=== PATIENT | female | born 1945 | race Caucasian/White ===

== ENCOUNTER 2018-03-14 15:27 | Inpatient (IN) | payer MEDICARE, MEDICAID ==
--- NOTE | 2018-03-14 16:53 | ED ---
Dizziness - HPI Summary HPI Summary: Pt is a 73 y/o female who presents to the ED c/o dizziness. She was at her PCP earlier today where she was found to have a hemoglobin level of 5. Pt c/o dizziness, decreased appetite, cold sweats, and fatigue. As per son, she has had intermittent bloody stool for the past 3 weeks. Pt denies any abdominal pain , vomiting, or LE edema. Son states he doesnt think his mother has had vaginal bleeding, but is unsure. Pt takes daily ASA. - History Of Current Complaint Chief Complaint: EDBleedingDisorder Stated Complaint: BLOOD WORK Time Seen by Provider: 03/14/18 16:12 Hx Obtained From: Patient, Family/School Supervisor - Son Onset/Duration: Still Present Timing: Weeks - 3 Character: Dizzy Aggravating Factor(s): Other - Low hemoglobin Alleviating Factor(s): Nothing Associated Signs And Symptoms: Positive: Diaphoresis, Decreased Oral Intake, Blood In Stool. Negative: Vomiting - Allergies/Home Medications Allergies/Adverse Reactions: Allergies Allergy/AdvReac Type Severity Reaction Status Date / Time MS Penicillins [Penicillins] Allergy Intermediate Itching Verified 01/09/16 18: 43 Home Medications: Home Medications Clopidogrel TAB* [Plavix TAB*] 75 mg PO DAILY 03/14/18 [History Confirmed ] Ezetimibe TAB* [Zetia TAB*] 10 mg PO DAILY 03/14/18 [History Confirmed 03/14/18] Insulin GLARGINE(*) [Lantus(*)] 25 units SUBCUT DAILY 03/14/18 [History Confirmed 03/14/18] Levothyroxine TAB* [Synthroid TAB*] 75 mcg PO DAILY 03/14/18 [History Confirmed 03/14/18] Lisinopril TAB* [Prinivil TAB*] 40 mg PO DAILY 03/14/18 [History Confirmed 03/14] metFORMIN* [Glucophage 500 MG TAB *] 500 mg PO TID 03/14/18 [History Confirmed 03/14/18] PMH/Surg Hx/FS Hx/Imm Hx Endocrine/Hematology History: Reports: Hx Diabetes, Hx Thyroid Disease - Hypo Cardiovascular History: Reports: Hx Hypercholesterolemia, Hx Hypertension Denies: Hx Congestive Heart Failure, Hx Pacemaker/ICD Respiratory History: Denies: Hx Chronic Obstructive Pulmonary Disease (COPD) GI History: Reports: Other GI Disorders - ABDOMINAL SWELLING, EPIGASTIC PAIN History: Denies: Hx Dialysis, Hx Renal Disease Musculoskeletal History: Reports: Other Musculoskeletal History - L side weakness due to previous two CVAs Denies: Hx Back Problems Sensory History: Reports: Hx Cataracts - bilaterally, Hx Contacts or Glasses Denies: Hx Hearing Aid Opthamlomology History: Reports: Hx Cataracts - bilaterally, Hx Contacts or Glasses Neurological History: Reports: Hx CVA - x2, most recently in 2014, Hx Dementia, Other Neuro Impairments/Disorders - LEFT SIDED WEAKNESS, Denies: Hx Seizures Psychiatric History: Denies: Hx Panic Disorder - Surgical History Surgery Procedure, Year, and Place: HYSTERECTOMY. X 3 Hx Anesthesia Reactions: No - Immunization History Date of Tetanus Vaccine: < 10 years Date of Influenza Vaccine: 03/14/2018 Immunizations Up to Date: Yes - Family History Known Family History: Positive: Cardiac Disease - CAD - Social History Alcohol Use: None Hx Substance Use: No Substance Use Type: Reports: None Hx Tobacco Use: Yes Smoking Status (MU): Current Every Day Smoker Type: Cigarettes Amount Used/How Often: 1/2 pack a day Review of Systems Positive: Fatigue, Skin Diaphoresis Positive: Other - Decreased appetite, bloody stool. Negative: Abdominal Pain, Vomiting Negative: other - vaginal bleeding Neurological: Other - Dizziness All Other Systems Reviewed And Are Negative: Yes Physical Exam - Summary Physical Exam Summary: Appearance: Well appearing, no pain distress Skin: warm, dry, reflects adequate perfusion Head/face: normal Eyes: EOMI, MOHINI, pale conjuctiva ENT: normal Neck: supple, non-tender Respiratory: CTA, breath sounds present Cardiovascular: RRR, pulses symmetrical Abdomen: non-tender, soft Bowel: present Musculoskeletal: normal, strength/ROM intact Neuro: normal, sensory motor intact, A&Ox3 Rectal: no active bleeding, no obvious stool Triage Information Reviewed: Yes Vital Signs Reviewed: Yes Diagnostics - Laboratory Result Diagrams: 03/14/18 17:09 03/14/18 17:09 Lab Statement: Any lab studies that have been ordered have been reviewed, and results considered in the medical decision making process. - Radiology CXR Xray Interpretation: No Acute Changes - NO ACTIVE CARDIOPULMONARY DISEASE IS NOTED. ED physician reviewed radiology report. Radiology Interpretation Completed By: Radiologist - EKG 17:59 Cardiac Rate: NL - 98 bpm EKG Rhythm: Sinus Rhythm EKG Interpretation: No acute changes Dizzy Course/Dx - Course Course Of Treatment: Pt is a 73 y/o female who presents to the ED c/o dizziness. She was at her PCP earlier today where she was found to have a hemoglobin level of 5. Pt c/o dizziness, decreased appetite, cold sweats, and fatigue. As per son, she has had intermittent bloody stool for the past 3 weeks. Pt denies any abdominal pain, vomiting, or LE edema. A physical exam revealed pale conjunctiva, and a rectal exam revealed no active bleeding and no obvious stool. A CXR was negative. An EKG revealed a normal rate of 98 bpm. Final dx are anemia, GI bleed, and dizziness. Pt is admitted to Dr. Bullock and is agreeable with this plan. - Diagnoses Differential Diagnosis/HQI/PQRI: GI Bleed, Other - dizziness/anemia Provider Diagnoses: Anemia, GI bleed, Dizziness - Provider Notifications Discussed Care Of Patient With: Sujatha Bullock Time Discussed With Above Provider: 18:00 Instructed by Provider To: Admit As Inpatient - Critical Care Time Critical Care Time: 30-74 min Discharge - Sign-Out/Discharge Documenting (check all that apply): Patient Departure - Admit - Discharge Plan Condition: Stable Disposition: ADMITTED TO [facility] Referrals: Chantelle Suh MD [Primary Care Provider] - - Billing Disposition and Condition Condition: STABLE Disposition: Admitted to [facility] - Attestation Statements Document Initiated by Gail: Yes Documenting Scribe: Barbara Mcclain Provider For Whom Gail is Documenting (Include Credential): Justin Vázquez MD Scribe Attestation: Barbara Panchal scribed for Justin Vázquez MD on 03/14/18 at 1847. Scribe Documentation Reviewed: Yes Provider Attestation: The documentation as recorded by the Barbara helms accurately reflects the service I personally performed and the decisions made by , Justin Vázquez MD
--- NOTE | 2018-03-14 17:01 | RAD ---
Indication: Anemia. Single frontal view of the chest performed at 1650 hours was reviewed. Comparison is made with previous exam dated January 09, 2016. No mediastinal shift is noted. Heart is of normal size and configuration. Lung varghese appear clear. IMPRESSION: NO ACTIVE CARDIOPULMONARY DISEASE IS NOTED.
[2018-03-14 17:24] LABS: ABS Basophils 0.1 10^3/ul (0-0.2); ABS Eosinophils 0.6 10^3/ul (0-0.6); ABS Lymphocytes 2.5 10^3/ul (1.0-4.8); ABS Monocytes 1.1 10^3/ul (0-0.8); ABS Neutrophils 7.6 10^3/ul (1.5-7.7); ABS Nucleated RBC 0 10^3/ul; Eosinophil % 5.1 % (0-6); Hematocrit 19 % (35-47); Hemoglobin 5.8 g/dl (12.0-16.0); Lymphocyte % 20.8 % (25-47); Mean Corpuscular HGB Conc 31 g/dl (31-36); Mean Corpuscular Hemoglobin 21 pg (27-31); Mean Corpuscular Volume 68 fL (80-97); Mean Platelet Volume 8.1 um3 (7.4-10.4); Nucleated Red Blood Cells % 0.1; Platelet Count 381 10^3/ul (150-450); Red Blood Count 2.75 10^6/ul (4.00-5.40); Red Cell Distribution Width 18 % (10.5-15); White Blood Count 11.8 10^3/ul (3.5-10.8)
[2018-03-14 17:30] LABS: INR 0.94 (0.77-1.02)
[2018-03-14 17:37] LABS: EGFR Non-African American 49.9 (>60)
[2018-03-14] MEDS ORDERED: Acetaminophen TAB* 325 MG PO PRN (19:33)
[2018-03-14] MEDS ORDERED: Ondansetron INJ* 2 MG/ML VIAL IV PRN (19:33)
[2018-03-14] MEDS ORDERED: Dextrose 50% Syringe 50 ML* 25 GM/50 ML SYRINGE IV PUSH PRN (19:42)
[2018-03-14 20:37] LABS: Hematocrit 20 % (35-47); Hemoglobin 6.4 g/dl (12.0-16.0)
[2018-03-14] MEDS: Pantoprazole IV* 40 MG IV SCH (23:14)
--- NOTE | 2018-03-15 00:06 | HP ---
CC: Dr. Chantelle Suh * HISTORY AND PHYSICAL: DATE OF ADMISSION: 03/14/18 PROVIDER: Mónica Pereyra NP ATTENDING PHYSICIAN WHILE IN THE HOSPITAL: Sujatha Ruano MD * (dictated by Mónica Pereyra NP). CHIEF COMPLAINT: 1. Dizziness. 2. Anemia. HISTORY OF PRESENT ILLNESS: Ms. Guadarrama is a 73-year-old female with past medical history significant for diabetes, CVA x3 last in December 2015, hypertension , hyperlipidemia, and hypothyroidism, who presented to the emergency department today from her primary care physician's office. The patient reports that she was at her primary care physician's office today for routine physical and had routine blood work drawn and was found to have anemia. So, she was sent to the emergency room for further evaluation. The family reports that approximately 3 days ago, the patient did have an episode of feeling dizzy and out of it, but has been in her normal state of health since. They do report that she has had some exertional shortness of breath and again the dizziness. They deny any fever or chills. She denies any chest pain. Denies any cough or congestion. Denies any hemoptysis. Denies any shortness of breath. Denies any nausea, vomiting, or diarrhea. Denies any abdominal pain. Denies any hematuria or dysuria. She has chronic left-sided weakness from previous CVA. Denies any visual complaints. Denies any dysphagia. Denies any arthralgias or myalgias. Denies any rashes or lesions. Denies any psychosis or anxiety. The patient had routine lab work drawn in the emergency room. She was found to have profound anemia with an H and H of 5.8 and 19. Due to her anemia and symptoms of dizziness and mild shortness of breath, we were asked to see and evaluate her for admission. PAST MEDICAL HISTORY: Significant for: 1. Diabetes. 2. CVA x3, last in December 2015; currently on dual-antiplatelet therapy with Plavix and aspirin. 3. Hypertension. 4. Hyperlipidemia. 5. Hypothyroidism. PAST SURGICAL HISTORY: Significant for: 1. Cholecystectomy. 2. section. 3. Cataract surgery. HOME MEDICATIONS: Include: 1. Levothyroxine 75 mcg p.o. daily. 2. Metformin 500 mg p.o. t.i.d. 3. Aspirin 325 mg p.o. daily. 4. Lisinopril 40 mg p.o. daily. 5. Lantus 25 units subcu daily. 6. Zetia 10 mg p.o. daily. 7. Clopidogrel 75 mg p.o. daily. ALLERGIES TO MEDICATIONS: She has an allergy to PENICILLIN. FAMILY HISTORY: Father of coronary artery disease in his 50s. SOCIAL HISTORY: The patient currently smokes approximately 1 pack per day. Denies any alcohol or illicit drug use. She is . Surrogate decision maker in the event she is unable to make her own decisions is James Guadarrama. His phone number is [phone]. She is a full code. REVIEW OF SYSTEMS: The patient has no documented fever. Denies any anorexia. Denies chest pain. Denies any edema. Denies any cough or hemoptysis. She currently denies any shortness of breath. Denies any nausea, vomiting, or diarrhea. Denies any abdominal pain. Family does report occasional approximately 2 times a week with bright red blood when wiping on the tissue after a bowel movement and streaking of blood in the stool, but deny any melena , or black or tarry stools. Denies any gross hematuria or dysuria. She does report left-sided weakness that is residual from prior CVA. Denies any visual complaints. Denies any dysphagia. Denies any arthralgias or myalgias. Denies any rashes or lesions. Denies any psychosis or anxiety. The patient currently is wheelchair bound and nonambulatory. PHYSICAL EXAMINATION GENERAL: At this time, Ms. Guadarrama is a 73-year-old female. She appears pale , resting on the stretcher in the emergency room. She does not appear to be in any acute distress. VITAL SIGNS: Blood pressure 120/68, heart rate is 102, respirations 15, O2 saturation 97% on room air. HEENT: Head is atraumatic, normocephalic. Eyes: EOMs are intact. Sclerae anicteric and pale. Oral mucosa appears to be dry with mild paleness. No oropharyngeal erythema. NECK: Supple. LUNGS: Clear to auscultation bilaterally. No wheezes, rales, or rhonchi. CARDIAC: S1, S2. She does have a murmur. No rubs or gallops. Regular rate and rhythm. ABDOMEN: Soft, flat, and nontender. Bowel sounds are present x4. EXTREMITIES: Pulses are +2 bilaterally. She is able to move all extremities. She does have contracture to the left upper arm. NEUROLOGIC: She is awake, alert, and oriented x3. Her tongue is midline. Speech is clear. She does speak fluent Urdu. She does have residual left- sided weakness and left arm contracture from previous CVA. SKIN: Intact. DIAGNOSTIC STUDIES/LAB DATA: WBCs were 11.8, RBCs 2.75, hemoglobin 5.8, hematocrit was 19, MCVs were 68, MCH were 21, RDW was 18, platelet count is 381. INR was 0.94. Sodium 139, potassium 4.5, chloride 105, carbon dioxide was 25, anion gap was 9, BUN was 18, creatinine 1.08, lactic acid was 1.1, glucose was 100, calcium was 9.8, lipase was 33. ASTs were 21, ALTs were 8. Total bilirubin was 0.20. Chest x-ray, radiologist's impression: No active cardiopulmonary disease was noted. She had an electrocardiogram in the emergency room, which showed sinus rhythm at a rate of 98. There is no ST changes noted. ASSESSMENT AND PLAN: Ms. Guadarrama is a 73-year-old female patient who presented to the emergency room with complaints of mild dizziness. She was seen at her primary care provider's today and was found to have a hemoglobin of 5, so she was sent to the emergency room for further evaluation. We were asked to see her and admit her for profound anemia. She will be admitted under inpatient status for: 1. Anemia. I suspect this is related to dual-antiplatelet therapy. At this time, we will stop her full strength aspirin and Plavix. I did speak to Dr. Gao from Neurology who recommended stopping both aspirin and Plavix as when she was put on this 2 years ago, this was the recommended plan of care and recent recommendations recommend dual antiplatelet therapy for 30 days post cerebrovascular accident. I will place her on aspirin 81 mg. She will be seen in consultation by GI in the morning. We will give her 2 units of packed red blood cells. We will repeat H and H q.6 hours. We will put her on Protonix 40 mg IV q.12 hours. 2. History of cerebrovascular accident. We will continue on aspirin 81 mg. 3. Hypertension. She will continue on her home medications of Zetia and lisinopril. 4. Hypothyroidism. We will continue her on Synthroid 75 mcg. 5. Diabetes. I will place her on Accu-Check a.c. and h.s. She will be on lispro sliding scale. 6. I am going to hold her Lantus this evening as she will be n.p.o. after midnight for upper endoscopy tomorrow. 7. Deep vein thrombosis prophylaxis. She will be placed on SCDs at this time, chemical anticoagulant deep vein thrombosis prophylaxis is contraindicated due to possible GI bleed. 8. FEN. She will be on clear liquids and then n.p.o. after midnight for an upper endoscopy tomorrow. 9. Code status. She is a full code. TIME SPENT: Time spent on this admission was approximately 60 minutes, greater than half that time was spent with the patient obtaining my history and physical , the other half the time was spent implementing my plan of care. I have discussed this with my attending, Dr. Sujatha Ruano, she is in agreement with my plan. MÓNICA PEREYRA, PARANORMAL INVESTIGATOR [id number]/[facility] #: [id number] MARCOS
[2018-03-15] MEDS: Levothyroxine TAB* 75 MCG TAB PO SCH (05:44)
[2018-03-15] MEDS: Insulin LISPRO* 1 UNITS UNIT SUBCUT SCH ×3 (07:55→17:50)
[2018-03-15 08:10] LABS: ABS Basophils 0.1 10^3/ul (0-0.2); ABS Eosinophils 0.7 10^3/ul (0-0.6); ABS Lymphocytes 1.7 10^3/ul (1.0-4.8); ABS Monocytes 1.3 10^3/ul (0-0.8); ABS Neutrophils 6.5 10^3/ul (1.5-7.7); ABS Nucleated RBC 0 10^3/ul; Eosinophil % 6.6 % (0-6); Hematocrit 28 % (35-47); Hemoglobin 9.2 g/dl (12.0-16.0); Lymphocyte % 16.6 % (25-47); Mean Corpuscular HGB Conc 33 g/dl (31-36); Mean Corpuscular Hemoglobin 25 pg (27-31); Mean Corpuscular Volume 75 fL (80-97); Nucleated Red Blood Cells % 0.1; Platelet Count 250 10^3/ul (150-450); Red Blood Count 3.72 10^6/ul (4.00-5.40); Red Cell Distribution Width 20 % (10.5-15); White Blood Count 10.2 10^3/ul (3.5-10.8)
[2018-03-15 08:25] LABS: EGFR Non-African American 49.3 (>60)
--- NOTE | 2018-03-15 08:40 | PN ---
Subjective Date of Service: 03/15/18 Interval History: examined patient at the bedside, interviewed using ipad and language assistance , as the patient speaks fluent Latvian. Patient denies abd pain, n/v/d. Denies chest pain or shortness of breath. Denies black or tarry stools. Family History: Unchanged from Admission Social History: Unchanged from Admission Past Medical History: Unchanged from Admission Objective Active Medications: Acetaminophen (Tylenol Tab*) 650 mg PO Q4H PRN PRN Reason: FEVER/PAIN Aspirin (Aspirin 81 Mg Chew Tab*) 81 mg PO DAILY [facility] Dextrose (D50w Syringe 50 Ml*) 12.5 gm IV PUSH .FOR FS < 60 - SS PRN PRN Reason: FS < 60 Ezetimibe (Zetia Tab*) 10 mg PO DAILY [facility] Insulin Human Lispro (Humalog*) 0 units SUBCUT AC [facility]; Protocol Last Admin: 03/15/18 07:55 Dose: Not Given Levothyroxine Sodium (Synthroid Tab*) 75 mcg PO 0600 [facility] Last Admin: 03/15/18 05:44 Dose: 75 mcg Lisinopril (Prinivil Tab*) 40 mg PO DAILY [facility] Ondansetron HCl (Zofran Inj*) 4 mg IV Q4H PRN PRN Reason: NAUSEA/VOMITING Pantoprazole Sodium (Protonix Iv*) 40 mg IV Q12H [facility] Last Admin: 03/14/18 23:14 Dose: 40 mg Vital Signs - 8 hr 03/15/18 03/15/18 03/15/18 02:55 08:00 08:18 Temperature 98.9 F 98.1 F Pulse Rate 95 89 Respiratory 18 18 16 Rate Blood Pressure 137/73 118/59 (mmHg) O2 Sat by Pulse 95 97 Oximetry Oxygen Devices in Use Now: None Appearance: appears comfortable lying in bed, no acute distress, color pink Eyes: No Scleral Icterus Ears/Nose/Mouth/Throat: Clear Oropharnyx, Mucous Membranes Moist Neck: NL Appearance and Movements; NL JVP, Trachea Midline Respiratory: Symmetrical Chest Expansion and Respiratory Effort, Clear to Auscultation Cardiovascular: NL Sounds; No Murmurs; No JVD, No Edema Abdominal: NL Sounds; No Tenderness; No Distention Extremities: No Clubbing, Cyanosis Skin: No Rash or Ulcers Neurological: Alert and Oriented x 3 Nutrition: Taking PO's Result Diagrams: 03/15/18 13:54 03/15/18 07:27 Microbiology and Other Data: Microbiology 03/14/18 16:56 Stool Occult Blood ([facility]IXON) - Final Stool Assess/Plan/Problems-Billing Assessment: Ms. Guadarrama is a 73 y.o. female with a history of CVA x3, HTN, DM, HLD and hypothyroid who presented to the ER from her PMD office for hemoglobin of 5. Patient reports that she had an episode of dizziness approximately 3 days ago and but since then has felt in her normal state of health. Does report occasional blood on the toilet paper when wiping but denies black or tarry stools. Patient is on ASA and plavix for CVA in 2016. - Patient Problems (1) Anemia Current Visit: Yes Status: Acute Code(s): D64.9 - ANEMIA, UNSPECIFIED SNOMED Code(s): 401538280 Comment: -h/h on admission 5.02/05 - repeat this AM after 2 units of PRBC's .- will repeat CBC in the AM - GI consulted - pending - EDG this afternoon- GI reports several ulcers in the stomach and duodeum- no bleeding seen, continue protonix 40 mg IV BID. Can continue ASA. Clear liquid diet and advance to soft diet tomorrow. will need repeat EDG in 6 weeks and will need colonscopy as an outpatient as well- will need to follow up with GI as an outpatient. - will continue to monitor H/H Q 6 hours - will add iron studies (2) Diabetes Current Visit: No Status: Acute Code(s): E11.9 - TYPE 2 DIABETES MELLITUS WITHOUT COMPLICATIONS SNOMED Code(s): 06229590 Comment: - Lispro sliding scale - Holding lantus d/t NPO status / clear liquids - Blood glucose 95 this AM - finger sticks AC/HS (3) HTN (hypertension) Current Visit: No Status: Chronic Code(s): I10 - ESSENTIAL (PRIMARY) HYPERTENSION SNOMED Code(s): 03121506 Comment: stable - will continue home medications lisinopril (4) DVT prophylaxis Current Visit: No Status: Acute Code(s): GYX8730 - SNOMED Code(s): 873460237 Comment: SCD's Chemical prophylaxis held d/t suspected GI bleeding (5) Full code status Current Visit: No Status: Acute Code(s): Z78.9 - OTHER SPECIFIED HEALTH STATUS SNOMED Code(s): 849340938 Status and Disposition: possible d/c in the AM
[2018-03-15] MEDS ORDERED: Insulin GLARGINE(*) 1 UNITS UNIT SUBCUT SCH (09:00)
[2018-03-15] MEDS: Pantoprazole IV* 40 MG IV SCH ×2 (09:41→22:10)
[2018-03-15 14:15] LABS: Hematocrit 31 % (35-47); Hemoglobin 9.9 g/dl (12.0-16.0)
--- NOTE | 2018-03-15 14:17 | CONS ---
GASTROENTEROLOGY CONSULT NOTE: DATE OF CONSULT: 03/15/18 REASON FOR CONSULT: Anemia. HISTORY OF PRESENT ILLNESS: Ms. Guadarrama is a 73-year-old woman with a history of diabetes, CVA x3 (last in 2015), hypertension, hyperlipidemia, and hypothyroidism, who was admitted after being found to have anemia on labs drawn by her PCP. History obtained from the patient with assistance of video cow buyer, although the patient seems to be a poor historian even with cow buyer assistance. Additional history obtained in discussion with admitting physician and review of H and P. Ms. Guadarrama apparently had an episode of dizziness several days ago, which resolved. She denies feeling dizzy to me today. She had her blood work drawn during a routine physical and was noted to have a hematocrit of 19. She was sent to the ER and repeat hematocrit was 20. In discussion with admitting provider, it seems that stool occult was negative but there was no stool in the rectal vault (possible false negative). The patient received 2 units of blood with repeat hematocrit of 28 this morning. GI consulted given concern for possible GI blood loss. On interview, Ms. Guadarrama says that she has 1 to 2 bowel movements a day, which are brown and normal. She denies seeing any blood, although the admitting provider mentions that the son reported patient seeing some bright red blood on the toilet paper or around the stool at times. Patient denies any nausea, vomiting, heartburn, dysphagia, or abdominal pain. She is on Plavix and aspirin. She is not on any antacid medication. She denies any NSAID use. She is not sure if she has ever had an endoscopy or colonoscopy before. REVIEW OF SYSTEMS: Review of systems attempted with patient, although this was difficult due to language barrier and incomplete responses. She denies any active chest pain or shortness of breath. Apparently, she did complainof some dyspnea on exertion when she was admitted. he also tells me that she fell at some point when they were trying to change her underwear. She is unable to provide any details as to the timing of this fall. She denies all other symptoms. PAST MEDICAL HISTORY: 1. Diabetes. 2. CVA x3, last in 2016. On Plavix and aspirin. 3. Hypertension. 4. Hyperlipidemia. 5. Hypothyroidism. PAST SURGICAL HISTORY: 1. Cholecystectomy. 2. . 3. Cataract surgery. MEDICATIONS: 1. Levothyroxine 75 mcg daily. 2. Metformin 500 t.i.d. 3. Aspirin 325 daily. 4. Lisinopril 40 daily. 5. Lantus. 6. Zetia. 7. Clopidogrel 75 mg daily. ALLERGIES: PENICILLIN. FAMILY HISTORY: No known GI or liver disease in family. SOCIAL HISTORY: The patient is a smoker. Denies any alcohol or drug use. PHYSICAL EXAM: Vital Signs: Temp 98.9, heart rate 95, blood pressure 137/73, and 95% on room air. General: Frail elderly-appearing woman. Resting comfortably in bed. In no acute distress. HEENT: Mucous membranes are moist. Sclerae are anicteric. Neck: Supple. Trachea midline. Lungs: Moving good air. No wheezes, rhonchi, or crackles. Cardiac: Regular rate and rhythm. Abdomen: Soft, nontender, and nondistended. Extremities: No edema. Neurologic: Difficult to assess the patient's underlying mental status given the language barrier and incomplete responses. She is awake and alert and appears to be oriented. She does have some residual left-sided weakness and requires some assistance with repositioning. Skin: No jaundice. DIAGNOSTIC STUDIES/LAB DATA: Labs reviewed. Notable for an initial hematocrit of 19 and hemoglobin of 5.8, white blood cell count 11.8, platelets 381. INR normal at 0.94. Repeat blood work after 2 units of blood demonstrated a hemoglobin of 9.2 and hematocrit of 28 IMPRESSION AND RECOMMENDATIONS: Ms. Guadarrama is a 73-year-old woman with a history of cerebrovascular accident, on Plavix and aspirin, as well as hypertension and hyperlipidemia, who is admitted after she was noted to have quite low blood counts (Hct 19) without clear explanation. History is challenging to obtain given language barrier and incomplete responses from patient. Patient has apparently complained of some dizziness and dyspnea on exertion at home recently. She denies seeing any blood in her stool to me, although there may have been some bright red blood per rectum intermittently at home noted per family. The patient's hematocrit responded appropriately to transfusion. I do not have a prior CBC for comparison to determine acuity of anemia, although I suspect that this is a [id number] blood loss anemia in setting of dual anti-platelet therapy given the absence of overt GI bleeding or hemodynamic instability. I think it is appropriate to perform EGD to evaluate upper GI tract for possible sources of blood loss. If EGD is negative, then we will discuss timing of colonoscopy. 1. Please keep patient NPO for EGD today. 2. Per primary team, ASA to continue. Plavix held. 3. Please obtain iron studies to confirm iron deficiency as this would be expected with subacute to chronic blood loss. If iron studies are not abnormal, then I would recommend expanding evaluation to include other causes of anemia. Thank you for this consult. I will contact the primary team with the findings of the EGD. [id number]/[facility] #: [id number] MARCOS
[2018-03-15] MEDS ORDERED: Midazolam* 1 MG/ML 10 ML VIAL (10 MG) ONE (15:00)
[2018-03-15] MEDS ORDERED: fentaNYL* 50 MCG/ML 2 ML VIAL (100 MCG VIAL) ONE (15:00)
[2018-03-15] MEDS ORDERED: Glucagon* 1 MG VIAL ONE (16:42)
[2018-03-15] MEDS: Ezetimibe TAB* 10 MG PO SCH (17:49)
[2018-03-15] MEDS: Lisinopril TAB* 10 MG PO SCH (17:49)
[2018-03-15] MEDS: Aspirin 81 mg CHEW TAB* 81 MG TAB.CHEW PO SCH (17:50)
--- NOTE | 2018-03-15 17:58 | PRO ---
PROCEDURE NOTE: DATE OF PROCEDURE: 03/15/18 PRIMARY CARE PHYSICIAN: Dr. Chantelle Suh. PROCEDURE: EGD with biopsy. INDICATION: Anemia. MEDICATIONS GIVEN: 1. Versed 4 mg IV. 2. Fentanyl 37.5 mcg IV. DESCRIPTION OF PROCEDURE: Full disclosure of risks was reviewed with the patient as detailed on the consent form. The patient was placed in the left lateral decubitus position and monitored with continuous pulse oximetry, interval blood pressure monitoring, and direct observation. A bite-block was placed between the teeth. An Olympus gastroscope was then inserted into the patient's mouth, advanced down the esophagus, into the stomach, and into the distal duodenum. FINDINGS: - Esophagus was normal in appearance with a regular Z-line and GE junction at 37 cm. - The scope was then advanced into the stomach. There was no red blood or melena.The stomach was examined in forward and retroflexed views. In the prepyloric antrum along the less curvature, in a rather difficult place to view , there was a 1-cm, clean-based ulcer with heaped- up edges. Biopsies were obtained from the edges of the ulcer. A biopsy was taken from the antrum and sent for CLOtest. - The scope was then advanced into the duodenum. There were no signs of red blood or melena anywhere in the duodenum. The duodenum was notable for edema and several areas of thickened, heaped-up mucosa in the second portion. There was a significant amount of spasm and motility in the duodenum making it challenging to fully evaluate these areas. Glucagon 0.5 mg IV was given with some improvement in the motility. The abnormal mucosa in the duodenum was again inspected without identification of any obvious ulcer(s) in this area. Biopsies were obtained from the abnormal duodenal tissue. Scope was then slowly withdrawn. The patient tolerated the procedure well and was returned to the GI recovery unit in stable condition. IMPRESSION: 1. Complete upper endoscopy to the third portion of the duodenum. No red blood or melena appreciated during this exam to suggest recent or active bleeding. 2. A large clean-based gastric ulcer in the prepyloric antrum along the lesser curvature. Biopsies obtained. 3. Biopsy from antrum sent for CLOtest to rule-out H pylori. 4. Several areas of heaped-up and thickened mucosa in the second portion of the duodenum suggestive of inflammation, although no clear ulcer(s) identified. 5. I believe that the findings from this exam do explain iron deficiency anemia , particularly in the setting of DAPT. RECOMMENDATIONS: 1. We will await path and CLOtest. 2. Continue IV PPI b.i.d. while in the hospital. Switch to p.o. b.i.d. PPI on discharge for 8 weeks then decrease to once daily. 3. Per primary team, patient is going to switch to monotherapy (ASA) and discontinue Plavix. Recommend continuing PPI indefinitely while on ASA given current presentation of anemia/PUD. 4. Can trial clears today and consider advancing diet tomorrow if the patient' s blood count remains stable 5. Will plan to repeat EGD in 6 to 8 weeks in the outpatient setting to ensure gastric ulcer has healed. We can also schedule patient for a colonoscopy at the same time given the iron deficiency anemia, intermittent BRBPR, and unclear timing of last colonoscopy. The findings of the procedure and GI recommendations were reviewed with the primary team as well as the patient's son. [id number]/[facility] #: [id number] MARCOS
[2018-03-15 19:41] LABS: Hematocrit 30 % (35-47); Hemoglobin 9.5 g/dl (12.0-16.0)
[2018-03-16] MEDS: Insulin LISPRO* 1 UNITS UNIT SUBCUT SCH ×3 (00:08→13:45)
[2018-03-16] MEDS: Levothyroxine TAB* 75 MCG TAB PO SCH (05:48)
[2018-03-16 08:41] LABS: ABS Basophils 0 10^3/ul (0-0.2); ABS Eosinophils 0.7 10^3/ul (0-0.6); ABS Lymphocytes 1.9 10^3/ul (1.0-4.8); ABS Monocytes 1.3 10^3/ul (0-0.8); ABS Neutrophils 6.9 10^3/ul (1.5-7.7); ABS Nucleated RBC 0 10^3/ul; Eosinophil % 6.2 % (0-6); Hematocrit 28 % (35-47); Hemoglobin 9.2 g/dl (12.0-16.0); Lymphocyte % 17.4 % (25-47); Mean Corpuscular HGB Conc 33 g/dl (31-36); Mean Corpuscular Hemoglobin 25 pg (27-31); Mean Corpuscular Volume 75 fL (80-97); Mean Platelet Volume 7.8 um3 (7.4-10.4); Nucleated Red Blood Cells % 0; Platelet Count 245 10^3/ul (150-450); Red Blood Count 3.76 10^6/ul (4.00-5.40); Red Cell Distribution Width 21 % (10.5-15); White Blood Count 10.7 10^3/ul (3.5-10.8)
[2018-03-16 08:53] LABS: EGFR Non-African American 50.4 (>60)
[2018-03-16] MEDS: Aspirin 81 mg CHEW TAB* 81 MG TAB.CHEW PO SCH (09:26)
[2018-03-16] MEDS: Pantoprazole IV* 40 MG IV SCH (09:26)
[2018-03-16] MEDS: Lisinopril TAB* 10 MG PO SCH (09:29)
[2018-03-16] MEDS: Ezetimibe TAB* 10 MG PO SCH (09:29)
[2018-03-16 13:53] VITALS: BP 115/50
--- NOTE | 2018-03-16 18:02 | PN ---
Subjective Date of Service: 03/16/18 Interval History: patient examined at the bedside, no complaints today. Denies black or tarry stool, denies dizziness. denies chest pain or shortness of breath. Family History: Unchanged from Admission Social History: Unchanged from Admission Past Medical History: Unchanged from Admission Objective Active Medications: Acetaminophen (Tylenol Tab*) 650 mg PO Q4H PRN PRN Reason: FEVER/PAIN Aspirin (Aspirin 81 Mg Chew Tab*) 81 mg PO DAILY [facility] Last Admin: 03/16/18 09:26 Dose: 81 mg Dextrose (D50w Syringe 50 Ml*) 12.5 gm IV PUSH .FOR FS < 60 - SS PRN PRN Reason: FS < 60 Ezetimibe (Zetia Tab*) 10 mg PO DAILY [facility] Last Admin: 03/16/18 09:29 Dose: Not Given Insulin Human Lispro (Humalog*) 0 units SUBCUT [facility]; Protocol Last Admin: 03/16/18 13:45 Dose: Not Given Levothyroxine Sodium (Synthroid Tab*) 75 mcg PO 0600 [facility] Last Admin: 03/16/18 05:48 Dose: 75 mcg Lisinopril (Prinivil Tab*) 20 mg PO DAILY [facility] Ondansetron HCl (Zofran Inj*) 4 mg IV Q4H PRN PRN Reason: NAUSEA/VOMITING Pantoprazole Sodium (Protonix Iv*) 40 mg IV Q12H [facility] Last Admin: 03/16/18 09:26 Dose: 40 mg Vital Signs - 8 hr 03/16/18 03/16/18 11:01 13:15 Temperature 98.0 F 98.5 F Pulse Rate 84 77 Respiratory 20 16 Rate Blood Pressure 91/47 115/50 (mmHg) O2 Sat by Pulse 99 98 Oximetry Oxygen Devices in Use Now: None Appearance: alert , color pink , resting in bed, no acute distress Eyes: No Scleral Icterus Ears/Nose/Mouth/Throat: Clear Oropharnyx, Mucous Membranes Moist Neck: NL Appearance and Movements; NL JVP, Trachea Midline Respiratory: Symmetrical Chest Expansion and Respiratory Effort, Clear to Auscultation Cardiovascular: NL Sounds; No Murmurs; No JVD, No Edema Extremities: No Edema, No Clubbing, Cyanosis Skin: No Rash or Ulcers Neurological: Alert and Oriented x 3 Nutrition: Taking PO's - Nutrition: Malnutrition Diagnosis/Plan Malnutrition Assessment by Registered Dietitian: Malnutrition Assessment Clinical Characteristics Acute,Severe Malnutrition Assessment: <or= 50% of EEE x >or= 5 days Criteria severe wt loss: 19.8-24.5% x approx 2-3 mos mild-moderate temporal wasting on observation Malnutrition Assessment: Suggest Ensure Enlive with meals once diet Interventions advanced (350 kcal, 20 g pro per serving) Could also consider Ensure Pudding as a snack btw meals, as well Malnutrition Assessment: Goals 1. Intake will improve to at least 50% of meals once diet advanced 2. Intake will be sufficient to promote wt gain / replete protein stores 3. BG will remain well-controlled 4. H&H will cont to improve with tx Result Diagrams: 03/16/18 07:43 03/16/18 07:43 Microbiology and Other Data: Microbiology 03/14/18 16:56 Stool Occult Blood ([facility]) - Final Stool Assess/Plan/Problems-Billing Assessment: Ms. Guadarrama is a 73 y.o. female with a history of CVA x3, HTN, DM, HLD and hypothyroid who presented to the ER from her PMD office for hemoglobin of 5. Patient reports that she had an episode of dizziness approximately 3 days ago and but since then has felt in her normal state of health. Does report occasional blood on the toilet paper when wiping but denies black or tarry stools. Patient is on ASA and plavix for CVA in 2016. - Patient Problems (1) Anemia Current Visit: Yes Status: Acute Code(s): D64.9 - ANEMIA, UNSPECIFIED SNOMED Code(s): 018632935 Comment: -h/h on admission - today - GI consulted - EDG completed- GI reports several ulcers in the stomach and duodeum- no bleeding seen, but believes this is the source of her anemia. continue protonix 40 mg IV BID. Can continue ASA. Clear liquid diet and advance to soft diet tomorrow. Will need PPI BID for 8 weeks will need repeat EDG in 6 weeks and will need colonscopy as an outpatient as well- will need to follow up with GI as an outpatient. -- iron studies completed - TIBC 458, % 14 , ferritin 6.9 (2) Diabetes Current Visit: No Status: Acute Code(s): E11.9 - TYPE 2 DIABETES MELLITUS WITHOUT COMPLICATIONS SNOMED Code(s): 42117949 Comment: - Lispro sliding scale - conitnue to hold lantus and metformin as Blood glucose is 90- Will adjust home dose of lantus to 5 units at night as son reports that the patient has been only taking 15 units. Will decrease metformin to 500 mg BID- start tomorrow - Blood glucose 90 this AM - finger sticks AC/HS - will need further adjustment with PMD if blood sugars increase (3) HTN (hypertension) Current Visit: No Status: Chronic Code(s): I10 - ESSENTIAL (PRIMARY) HYPERTENSION SNOMED Code(s): 65378808 Comment: hypotensive to 110's today will stop lisinopril and zetia - can resume based on PMD recommendations at her follow up appointment - (4) DVT prophylaxis Current Visit: No Status: Acute Code(s): CCR7307 - SNOMED Code(s): 234154980 Comment: SCD's Chemical prophylaxis held d/t suspected GI bleeding (5) Full code status Current Visit: No Status: Acute Code(s): Z78.9 - OTHER SPECIFIED HEALTH STATUS SNOMED Code(s): 552894126 Status and Disposition: discharge home today
[2018-03-17] MEDS ORDERED: Lisinopril TAB* 10 MG PO SCH (09:00)
--- NOTE | 2018-03-20 01:28 | DS ---
DISCHARGE SUMMARY: DATE OF ADMISSION: 03/14/18 DATE OF DISCHARGE: 03/16/18 ATTENDING PHYSICIAN: Dr. Sujatha Ruano * (dictated by Tod Pereyra NP) PRIMARY CARE PROVIDER: Dr. Suh. PRIMARY DIAGNOSES: 1. Anemia. 2. Gastric ulcers. SECONDARY DIAGNOSES: 1. Hypertension. 2. Diabetes. 3. Hyperlipidemia. 4. Hypothyroidism. 5. History of cerebrovascular accident x3. STUDIES COMPLETED WHILE IN THE HOSPITAL: She had chest x-ray on 03/14/18. Radiologist's impression, no active cardiopulmonary disease. She had an upper endoscopy, which showed large clean base gastric ulcers in the prepyloric antrum along the lesser curvature. No red blood or melena. DISCHARGE MEDICATIONS: 1. Omeprazole 20 mg p.o. b.i.d. for 8 weeks and then p.o. daily. 2. Aspirin 81 mg p.o. daily. Continued home medications: 1. Levothyroxine 75 mcg p.o. daily. 2. Metformin 500 mg p.o. b.i.d. 3. Lantus was decreased to 5 units subcu daily. Discontinued home medications: 1. Plavix. 2. Lisinopril 40 mg. 3. Zetia 10 mg as the patient was hypotensive during this hospitalization. HISTORY OF PRESENT ILLNESS AND HOSPITAL COURSE: Ms. Guadarrama is a 73-year-old female with a past medical history significant for diabetes, CVA x3 last one was in December 2015, hypertension, hyperlipidemia, and hypothyroid who presented to the emergency room today from her primary care physician's office. The patient reports that she was at her primary care physician's for routine visit and had routine blood work drawn, was found to be anemic, so she was sent to the emergency room for further evaluation. The family reports that approximately 3 days ago, the patient did have an episode of dizziness and feeling out of it, but has been in her normal state of health since then. They do report that she complains of some exertional shortness of breath and dizziness, denies fever or chills, denies any chest pain, denies any cough or congestion, denies any nausea, vomiting or diarrhea, denies any hematuria. He did report that the patient does have occasional bright blood red around the stool but not black or tarry stools. While in the emergency room, the patient had routine lab work drawn, she was found to have an H and H of 5.8 and 19. Due to her symptoms of anemia, some dizziness and mild shortness of breath, we were asked to evaluate her for admission. While in the hospital, the patient had an upper endoscopy with Gastroenterology , which showed gastric ulcers, but no melena or bleeding in the stomach. They recommended the patient be placed on a PPI b.i.d. for 8 weeks and then daily. I did consult with Neurology and they recommended stopping Plavix and aspirin initially and then just placing the patient on aspirin daily on a monotherapy because it has been over 30 days since her last CVA. On the day of discharge, the patient was feeling well. She has no complaints. She denies any dizziness. Denies any nausea, vomiting or diarrhea. She denies any black or tarry stools. She denies any vomiting of blood. At this time, she is stable for discharge home. Ms. Guadarrama will be discharged home today. Vital signs are as follows: Blood pressure was 115/50, heart rate was 77, respirations 16, O2 saturations 98% on room air, temperature was 98.5. DISCHARGE PLAN: Ms. Guadarrama will be discharged back home. Activity as tolerated. She should continue on a heart healthy low sodium diet. 1. Anemia, I suspect this is related to gastric ulcers, which were found on her upper endoscopy. She will be placed on omeprazole 20 mg p.o. b.i.d. for 8 weeks and then daily. We will stop her Plavix and continue her on monotherapy with aspirin 81 mg p.o. daily. She will need a repeat upper endoscopy in 6 weeks and a colonoscopy as per Gastroenterology's recommendations. She should followup with Gastroenterology in next 4 to 6 weeks to have this scheduled. The patient will need a repeat CBC next Tuesday to continue to monitor her hemoglobin and hematocrit. 2. Hypertension: The patient was normotensive to hypotensive with the blood pressures as low as 91/47. At this time, I will stop her lisinopril and Zetia. Further management of these blood pressure medications should be made with her primary care provider. She should followup with her primary care provider in 4 to 7 days for further management of her blood pressure. 3. Diabetes: The patient should resume her metformin 500 mg p.o. b.i.d. I did decrease the Lantus to 5 units as her blood sugars throughout her hospitalization were 90, 94, 92, 203. She should followup with her primary care provider for further adjustments to her Lantus. 4. Hypothyroid: She should continue on her levothyroxine as previously prescribed at 75 mcg p.o. daily. The patient should followup with her primary care provider within the next week. She should followup with the Gastroenterology in the next 4 to 6 weeks. The patient was instructed to return to the emergency room for any chest pain, shortness of breath, any dizziness, lightheadedness, vomiting of blood or rectal bleeding. This is a summarization on her hospitalization. If further details are needed, please obtain the entire medical record. TIME SPENT: Time spent on this discharge was approximately 60 minutes, greater than half that time was spent with the patient and her family discussing discharge plans and instructions. CONDITION ON DISCHARGE: Stable. TOD PEREYRA NP [id number]/[facility] #: [id number] MARCOS
== END 2018-03-16 17:45 | disposition home or self-care (01) | DRG 811 ==
LOC: ED 15:27 → MED 18:07
PROVIDERS: ADMIT Internal Medicine; ATTEND Internal Medicine
PROC: 30233N1 Transfusion of Nonautologous Red Blood Cells into Peripheral Vein, Percutaneous Approach (ICD-10-PCS; principal; 2018-03-14)
PROC: 0DB68ZX Excision of Stomach, Via Natural or Artificial Opening Endoscopic, Diagnostic (ICD-10-PCS; 2018-03-15)
PROC: 0DB98ZX Excision of Duodenum, Via Natural or Artificial Opening Endoscopic, Diagnostic (ICD-10-PCS; 2018-03-15)
DX: D64.9 Anemia, unspecified (principal); E43 Unspecified severe protein-calorie malnutrition; I69.354 Hemiplegia and hemiparesis following cerebral infarction affecting left non-dominant side; K26.9 Duodenal ulcer, unspecified as acute or chronic, without hemorrhage or perforation; I10 Essential (primary) hypertension; E03.9 Hypothyroidism, unspecified; E78.5 Hyperlipidemia, unspecified; F17.210 Nicotine dependence, cigarettes, uncomplicated; E11.36 Type 2 diabetes mellitus with diabetic cataract; I95.9 Hypotension, unspecified; K25.9 Gastric ulcer, unspecified as acute or chronic, without hemorrhage or perforation; Z90.49 Acquired absence of other specified parts of digestive tract; Z98.49 Cataract extraction status, unspecified eye; Z88.0 Allergy status to penicillin; Z86.79 Personal history of other diseases of the circulatory system; Z90.710 Acquired absence of both cervix and uterus; Z79.82 Long term (current) use of aspirin; Z79.4 Long term (current) use of insulin
CPT/HCPCS: 36415; 71045; 80048; 80053; 82272; 82728; 83540; 83550; 83605; 83690; 84484; 85014; 85018; 85025; 85060; 85610; 85730; 86803; 86850; 86900; 86901; 86922; 87077; 88305; 88342; 93005; 99156; 99157; 99284; A9270-GY; J1610; J2250; J3010; P9040

== ENCOUNTER 2020-11-24 14:40 | Inpatient (IN) ==
[2020-11-24] MEDS ORDERED: NS 0.9% 1000 ml BAG 1,000 ML IV ONE (15:04)
[2020-11-24 15:17] LABS: ABS Basophils 0.1 10^3/ul (0-0.2); ABS Eosinophils 0.2 10^3/ul (0-0.6); ABS Lymphocytes 1.3 10^3/ul (1.0-4.8); ABS Monocytes 0.8 10^3/ul (0-0.8); ABS Neutrophils 8.8 10^3/ul (1.5-7.7); Hematocrit 45 % (35-47); Hemoglobin 15.1 g/dL (12.0-16.0); Lymphocyte % 11.3 %; Mean Corpuscular HGB Conc 33 g/dL (31-36); Mean Corpuscular Hemoglobin 30 pg (27-31); Mean Corpuscular Volume 89 fL (80-97); Nucleated Red Blood Cells % 0.1; Platelet Count 253 10^3/uL (150-450); Red Blood Count 5.08 10^6 /uL (3.70-4.87); Red Cell Distribution Width 15 % (10-15); White Blood Count 11.2 10^3/uL (3.5-10.8)
[2020-11-24 15:26] LABS: Activated Partial Thrombo Time 28.3 seconds (26.0-38.0); INR 1.11 (0.82-1.09)
[2020-11-24] MEDS ORDERED: Iodixanol (CONTRAST) 320 MG/ML 100 ML SDV IV ONE (15:28)
[2020-11-24 15:35] LABS: Albumin 4.6 g/dL (3.2-5.2); Albumin/Globulin Ratio 1.1 (1-3); EGFR African American 46.4 (>60); EGFR Non-African American 38.3 (>60); Globulin 4.3 g/dL (2-4); HDL Cholesterol 33.6 mg/dL; Total Bilirubin 0.4 mg/dL (0.2-1.0); Total Protein 8.9 g/dL (6.4-8.9)
[2020-11-24 15:36] LABS: Troponin I 0.01 ng/mL (<0.03)
[2020-11-24] MEDS ORDERED: Ondansetron 4 mg VIAL 2 MG/ML 2 ml VIAL IV ONE (16:01)
[2020-11-24] MEDS ORDERED: Morphine 4 MG/ML VIAL (1 ml) IV ONE (16:01)
[2020-11-24 17:31] LABS: Urine Appearance Clear; Urine Bilirubin Negative (Negative); Urine Blood 1+ (Negative); Urine Color Straw; Urine Glucose 1+(50 mg/dL) (Negative); Urine Ketones Negative (Negative); Urine Nitrite Negative (Negative); Urine Protein 2+(100 mg/dL) (Negative); Urine Urobilinogen Negative (Negative)
[2020-11-24 17:39] LABS: Urine Bacteria 1+ (Absent); Urine Red Blood Cell Trace(0-2/hpf) (Absent); Urine Squamous Epithelial Cell Present (Absent); Urine White Blood Cell Trace(0-5/hpf) (Absent)
[2020-11-24] MEDS ORDERED: Dextrose 50% Syringe 50 ml 25 GM/50 ML SYRINGE IV PUSH PRN (18:35)
[2020-11-24] MEDS ORDERED: Al Hydrox/Mg Hydrox/Simet LIQ 30 ML UDC PO PRN (18:38)
[2020-11-24] MEDS ORDERED: Ondansetron 4 mg VIAL 2 MG/ML 2 ml VIAL IV PRN (18:38)
[2020-11-24] MEDS ORDERED: Labetalol IV 5 MG/ML 20 ml VIAL IV PUSH PRN (18:44)
[2020-11-24 21:01] LABS: TSH Ultra Thyroid Stim Horm 36.41 mcIU/mL (0.34-5.60)
[2020-11-24] MEDS: Heparin 5000 UNITS/ML 1 mL VIAL SUBCUT SCH (22:36)
[2020-11-24] MEDS: Nicotine PATCH 7 MG/24 HR PATCH TRANSDERM SCH (22:36)
[2020-11-25] MEDS: Heparin 5000 UNITS/ML 1 mL VIAL SUBCUT SCH ×3 (05:34→22:19)
[2020-11-25 06:01] LABS: ABS Eosinophils 0.3 10^3/ul (0-0.6); ABS Lymphocytes 1.8 10^3/ul (1.0-4.8); ABS Monocytes 1.1 10^3/ul (0-0.8); ABS Neutrophils 6.6 10^3/ul (1.5-7.7); Hematocrit 41 % (35-47); Hemoglobin 13.8 g/dL (12.0-16.0); Lymphocyte % 18.2 %; Mean Corpuscular HGB Conc 34 g/dL (31-36); Mean Corpuscular Hemoglobin 30 pg (27-31); Mean Corpuscular Volume 89 fL (80-97); Mean Platelet Volume 9.2 fL (7.4-10.4); Nucleated Red Blood Cells % 0.1; Platelet Count 241 10^3/uL (150-450); Red Blood Count 4.65 10^6 /uL (3.70-4.87); Red Cell Distribution Width 14 % (10-15); White Blood Count 9.8 10^3/uL (3.5-10.8)
[2020-11-25 06:11] LABS: Calcium 9.3 mg/dL (8.6-10.3); EGFR African American 50.7 (>60); EGFR Non-African American 41.9 (>60); Potassium 3.6 mmol/L (3.5-5.0)
[2020-11-25] MEDS: Nicotine PATCH 7 MG/24 HR PATCH TRANSDERM SCH (09:16)
[2020-11-25] MEDS: cefTRIAXone 1 gm/50 mL NS BAG 1 GM/50 ML BAG IVPB SCH (18:27)
[2020-11-25] MEDS ORDERED: Potassium Chloride LIQUID 20 MEQ/15 ML LIQUID PO ONE (19:14)
[2020-11-25 23:42] LABS: Calcium 9.4 mg/dL (8.6-10.3); EGFR African American 45.6 (>60); EGFR Non-African American 37.7 (>60); Magnesium 2.2 mg/dL (1.9-2.7); Potassium 3.1 mmol/L (3.5-5.0)
[2020-11-25 23:44] LABS: Troponin I 0.01 ng/mL (<0.03)
[2020-11-26] MEDS: KCL 20 MEQ/100 ML IVPREMIX 20 MEQ/100 ML BAG IV SCH ×4 (04:54→08:50)
[2020-11-26] MEDS: Heparin 5000 UNITS/ML 1 mL VIAL SUBCUT SCH ×3 (06:11→21:27)
[2020-11-26 06:24] LABS: EGFR African American 48.4 (>60); Magnesium 2.3 mg/dL (1.9-2.7); Phosphorus 4.1 mg/dL (2.5-5.0); Potassium 4.2 mmol/L (3.5-5.0)
[2020-11-26] MEDS: Nicotine PATCH 7 MG/24 HR PATCH TRANSDERM SCH (08:59)
[2020-11-26] MEDS: cefTRIAXone 1 gm/50 mL NS BAG 1 GM/50 ML BAG IVPB SCH (17:56)
[2020-11-27] MEDS: Heparin 5000 UNITS/ML 1 mL VIAL SUBCUT SCH (05:44)
[2020-11-27] MEDS ORDERED: Enoxaparin 30 MG/0.3 ML SYR SUBCUT SCH ×2 (11:00→14:00)
[2020-11-27] MEDS: Nicotine PATCH 7 MG/24 HR PATCH TRANSDERM SCH (11:41)
[2020-11-27] MEDS ORDERED: Psyllium PAK PO SCH (17:00)
[2020-11-27] MEDS: Calcium Polycarbophil 625mg TB PO SCH (18:39)
[2020-11-28] MEDS: Calcium Polycarbophil 625mg TB PO SCH (09:30)
[2020-11-28] MEDS: Nicotine PATCH 7 MG/24 HR PATCH TRANSDERM SCH (09:30)
[2020-11-28 09:47] VITALS: BP 138/68
== END 2020-11-28 09:15 | DRG 64 ==
LOC: ED 14:40 → MEDTELE 18:38
PROVIDERS: ADMIT Hospitalist; ATTEND Internal Medicine